=== PATIENT | female | born 1980 | race Hispanic/Latino ===

== ENCOUNTER 2019-03-11 17:41 | Emergency (ER) | payer SELFPAY ==
--- NOTE | 2019-03-11 18:41 | RAD REPORT ---
EXAM DESCRIPTION: Brenden Single View03/11/2019 6:23 pm CLINICAL HISTORY: Chest pain COMPARISON: none FINDINGS: The lungs appear grossly clear. Heart is normal size IMPRESSION: No acute abnormalities displayed
[2019-03-11 18:48] LABS: Absolute Lymphocytes (CBC) 1.1 K/uL (0.7-4.9); Basophils % 0.5 % (0-1.3); Eosinophils % 1.8 % (0-4.4); Lymphocytes % 12.9 % (15.3-44.8); MPV 10.8 fL (7.6-11.3); Protime INR 1.14; RBC Red Blood Cell Count 5.99 M/uL (3.86-4.86)
[2019-03-11 19:04] LABS: ALT/SGPT 21 U/L (12-78); AST/SGOT 14 U/L (15-37); Albumin 3.8 g/dL (3.4-5.0); Alkaline Phosphatase 97 U/L (45-117); BUN Blood Urea Nitrogen 5 mg/dL (7-18); Bicarbonate 27 mmol/L (21-32); Bilirubin Direct 0.4 mg/dL (0-0.2); Bilirubin Total 1.9 mg/dL (0.2-1.0); Glucose Level 162 mg/dL (74-106); Magnesium 2.2 mg/dL (1.8-2.4); NT PRO-BNP 491 pg/mL (<125); Potassium 3.6 mmol/L (3.5-5.1); Protein, Total 8.2 g/dL (6.4-8.2); Sodium Level 140 mmol/L (136-145); Troponin (Emerg Dept Use Only) < 0.02 ng/mL (0.0-0.045)
[2019-03-11] MEDS ORDERED: NA CHLORIDE 0.9% 1,000 ML ONE (19:25)
--- NOTE | 2019-03-11 19:29 | RAD REPORT ---
EXAM DESCRIPTION: CT - Head Brain Wo Cont - 03/11/2019 6:28 pm CLINICAL HISTORY: Alteration of awareness/confusion COMPARISON: None TECHNIQUE: Computed axial tomography of the head was obtained. IV contrast was not requested. All CT scans are performed using dose optimization technique as appropriate and may include automated exposure control or mA/KV adjustment according to patient size. FINDINGS: An intracranial bleed is not seen . The ventricles are normal in caliber. No extra-axial fluid collection is noted. Small low-density area bilateral thalami . Mild low-density areas within periventricular, deep and subcortical white matter may represent ischem ic changes secondary to small vessel disease. Fluid within the sinuses/ mastoids is not seen. IMPRESSION: Small low-density area bilateral thalami and left basal ganglia probably representing la cunar infarcts of indeterminate age. If clinically indicated further evaluation with MRI could be obt ained
[2019-03-11] MEDS ORDERED: ASPIRIN 81 MG CHEWABLE TABLET ONE (19:59)
[2019-03-11] MEDS ORDERED: METOPROLOL TAR 25 MG TAB ONE (19:59)
[2019-03-11] MEDS ORDERED: METOPROLOL TARTRATE 5 MG/5 ML INJ IV ONE ×2 (19:59→20:31)
[2019-03-11] MEDS ORDERED: FOLIC ACID 5 MG/ML VIAL ONE (20:00)
--- NOTE | 2019-03-11 20:23 | ER ---
Nurse's Notes [facility] Name: Kaylynn Erickson Age: 38 yrs Sex: Female : 1980 Arrival Date: 03/11/2019 Time: 17:41 Bed 4 Private MD: Diagnosis: Aphasia;Cerebral infarction-age indeterminate Presentation: 03/11 17:43 Presenting complaint: Pt's states "she just doesn't want to talk and has been aa5 depressed over the last 2 weeks and just crying". Pt only answering yes or no questions at this time. Pt is A\\T\\O x 4, pt reports she is depressed. 17:43 Transition of care: patient was not received from another setting of care. Onset of aa5 symptoms was 2018. Care prior to arrival: None. 17:43 Acuity: DARREL 2 aa5 17:43 Method Of Arrival: Ambulatory aa5 18:00 Risk Assessment: Do you want to hurt yourself or someone else? Patient reports no sv desire to harm self or others. Initial Sepsis Screen: Does the patient meet any 2 criteria? HR > 90 bpm. No. Patient's initial sepsis screen is negative. Does the patient have a suspected source of infection? No. Patient's initial sepsis screen is negative. Historical: - Allergies: 17:42 No Known Allergies; aa5 - Home Meds: 17:42 None [Active]; aa5 - PMHx: 17:42 None; aa5 - PSHx: 17:42 None; aa5 - Immunization history:: Adult Immunizations unknown. - Social history:: Smoking status: Patient uses tobacco products, smokes one-half pack cigarettes per day, Patient/guardian denies using alcohol, street drugs. - Ebola Screening: : No symptoms or risks identified at this time. Screenin:05 Abuse screen: Denies threats or abuse. Denies injuries from another. Nutritional sv screening: No deficits noted. Tuberculosis screening: No symptoms or risk factors identified. Fall Risk No fall in past 12 months (0 pts). No secondary diagnosis (0 pts). IV access (20 points). Ambulatory Aid- None/Bed Rest/Nurse Assist (0 pts). Gait- Normal/Bed Rest/Wheelchair (0 pts) Mental Status- Oriented to own ability (0 pts). Total Rios Fall Scale indicates No Risk (0-24 pts). Assessment: 18:00 General: Appears uncomfortable, obese, Behavior is cooperative, anxious, crying, flat. sv General: Family reports pt's onset of symptoms was 1.5 weeks ago, stated by spouse. They stated that she had not been speaking as much and being as active as she normally is. Family reports an excess amount of stress that has happened.. Pain: Denies pain. Neuro: Level of Consciousness is awake, obeys commands, confused, Oriented to person, place, Gas Operator are equal bilaterally Moves all extremities. Full function Speech is normal, Facial symmetry appears normal, Denies numbness headache. Cardiovascular: Patient's skin is warm and dry. Pulses are 3+ in right radial artery and left radial artery Rhythm is sinus rhythm. Respiratory: Airway is patent Respiratory effort is even, unlabored, Respiratory pattern is regular, symmetrical, Denies shortness of breath. Derm: Skin is normal. Musculoskeletal: Range of motion: intact in all extremities. 19:15 General: Appears in no apparent distress. Behavior is cooperative, quiet. Pain: Denies ea pain. Neuro: Level of Consciousness is awake, alert, obeys commands, Oriented to person, place, Gas Operator are equal bilaterally Moves all extremities. Cardiovascular: Patient's skin is warm and dry. Cardiovascular: Patient's skin is warm and dry. Respiratory: Airway is patent Respiratory effort is even, unlabored, Respiratory pattern is regular, symmetrical. Derm: Skin is normal. Musculoskeletal: Circulation, motion, and sensation intact. 20:00 Reassessment: Patient and/or family updated on plan of care and expected duration. Pain ea level reassessed. Pt alert and oriented x 2, answering yes or no questions. Denies pain. Respirations even and unlabored. Chest expansions even and symmetrical. 20:58 Reassessment: Report called to Antonio DIAZ at [facility]. ea 21:37 Reassessment: Patient and/or family updated on plan of care and expected duration. Pain ea level reassessed. Pt awake and alert. Respirations even and unlabored. Chest expansions even and symmetrical. No s/s of pain or discomfort noted at this time. EMS at facility for transport, report given to EMS. Pt left facility via stretcher per EMS. Pt accompanied by significant other. Vital Signs: 17:43 BP 210 / 128; Pulse 107; Resp 20 S; Temp 99.3(O); Pulse Ox 96% on R/A; aa5 18:43 BP 200 / 130; Pulse 88 MON; Resp 19; Pulse Ox 97% on R/A; sv 19:00 BP 198 / 111; Pulse 87; Resp 18; Temp 98; Pulse Ox 98% ; ea 20:30 BP 172 / 92; Pulse 79; Resp 18; Pulse Ox 99% ; ea 20:42 BP 140 / 71; Pulse 80; Resp 18; Pulse Ox 99% ; ea 21:35 BP 186 / 92; Pulse 75; Resp 18; Temp 98.6; Pulse Ox 99% ; ea 18:43 Sinus Rhythm sv NIH Stroke Scale Scores: 18:10 NIHSS Score: 2 cp ED Course: 17:41 Patient arrived in ED. as 17:43 Arm band placed on Patient placed in an exam room, on a stretcher. aa5 17:46 Aron Ray PA is PHCP. cp 17:46 Aron Mullins MD is Attending Physician. cp 17:51 Triage completed. aa5 17:54 Bianca Lopez, JOE is Primary Nurse. sv 18:05 Patient has correct armband on for positive identification. Bed in low position. Call sv light in reach. Side rails up X2. Adult w/ patient. slusher operator on. Pulse ox on. NIBP on. Door closed. Head of bed elevated. 18:05 Initial lab(s) drawn, by me, sent to lab. First set of blood cultures drawn by me. sv Inserted saline lock: 20 gauge in left antecubital area, using aseptic technique. Blood collected. Flushed left antecubital with 5 ml normal saline. 18:07 Radiology exam delayed due to EKG and Xray being done at this time. nj 18:20 X-ray(s) taken. sv 18:22 XRAY Chest (1 view) In Process Unspecified. EDMS 18:23 Basic Metabolic Panel Sent. sv 18:23 CBC with Diff Sent. sv 18:23 LFT's Sent. sv 18:23 Magnesium Sent. sv 18:23 NT PRO-BNP Sent. sv 18:23 AMMONIA Sent. sv 18:[address] via stretcher. sv 18:28 CT completed. Patient tolerated procedure well. Patient moved back from CT. nj 18:29 CT Head Brain wo Cont In Process Unspecified. EDMS 19:04 Report given to Melvi RN and Karl RN. sv 19:08 Primary Nurse role handed off by Bianca Lopez RN sv 19:30 Liang Renteria RN is Primary Nurse. rv 21:35 No provider procedures requiring assistance completed. Patient transferred, IV remains ea in place. Administered Medications: 19:03 CANCELLED (Physician Discretion): NS 0.9% 1000 ml IV at 1 bolus Per protocol; 1000 mL cp bolus 19:20 Drug: NS 0.9% 1000 ml Route: IV; Rate: 1 bolus; Site: left antecubital; rv 20:30 Follow up: Response: No adverse reaction; IV Status: Completed infusion; IV Intake: ea 1000ml 19:51 Drug: Metoprolol 25 mg Route: PO; rv 20:15 Follow up: Response: No adverse reaction ea 19:51 Drug: Aspirin Chewable Tablet 324 mg Route: PO; rv 20:35 Follow up: Response: No adverse reaction ea 19:51 Drug: Lopressor 5 mg Route: IVP; Site: left antecubital; rv 20:05 Follow up: Response: Blood pressure is unchanged ea 19:51 Drug: foLIC Acid 1 mg Route: IVPB; Site: left antecubital; rv 21:44 Follow up: Response: No adverse reaction; IV Status: Completed infusion ea 20:15 CANCELLED (Physician Discretion): Metoprolol 25 mg PO once cp 20:25 Drug: Metoprolol 5 mg Route: IVP; Site: left antecubital; ea 20:32 Drug: Metoprolol 5 mg Route: IVP; Site: left antecubital; ea 21:00 Follow up: Response: No adverse reaction; Marked relief of symptoms ea Point of Care Testing: Blood Glucose: 18:05 Blood Glucose: 149 mg/dL; sv Ranges: Intake: 20:30 IV: 1000ml; Total: 1000ml. ea Outcome: 20:22 ER care complete, transfer ordered by . cp 20:45 Transferred by ground EMS to [facility], Transfer form completed. ea 20:45 Condition: stable 20:45 Instructed on the need for transfer, Demonstrated understanding of instructions. 21:47 Patient left the ED. ea NIH Stroke Scale - NIH Stroke Score Date: 03/11/2019 Time: 18:10 Total Score = 2 1a. Level of Consciousness (LOC) - 0(Alert) 1b. Level of Consciousness (LOC) (Year \\T\\ Age) - 0(Both) 1c. LOC Commands (Open \\T\\ Closes Eyes/[employer]) - 0(Both) 2. Best Gaze (Lateral Gaze Paresis) - 0(Normal) 3. Visual Field Loss - 0(No visual loss) 4. Facial Palsy - 0(Normal) 5a. Left Arm: Motor (10-second hold) - 0(No drift) 5b. Right Arm: Motor (10-second hold) - 0(No drift) 6a. Left Leg: Motor (5-second hold - always test supine) - 0(No drift) 6b. Right Leg: Motor (5-second hold - always test supine) - 0(No drift) 7. Limb Ataxia (finger/nose \\T\\ heel/louis - test with eyes open) - 0(Absent) 8. Sensory Loss (pinprick arms/legs/face) - 0(Normal) 9. Best Language: Aphasia (description/naming/reading) - 1(Mild to moderate aphasia) 10. Dysarthria (speech clarity - read or repeat words) - 1(Mild to Moderate) 11. Extinction and Inattention (visual/tactile/auditory/spatial/personal) - 0(No abnormality) Initials: cp Signatures: Dispatcher [employer] Bianca Lerma RN RN sv Martinez, Amelia as Calderon, Audri, RN RN aa5 Aron Ray PA PA cp Jordan, Nathan nj Antunez, Elena, RN RN ea Vicente, Ronaldo, RN RN rv Corrections: (The following items were deleted from the chart) 17:51 17:40 Presenting complaint: Pt's states "she just doesn't want to talk aa5 and has been depressed over the last 2 weeks and just crying". Pt only answering yes or no questions at this time. Pt is A\\T\\O x 4, pt reports she is depressed. aa5
--- NOTE | 2019-03-11 20:23 | EDPHYS ---
Physician Documentation [facility] Name: Kaylynn Erickson Age: 38 yrs Sex: Female : 1980 Arrival Date: 03/11/2019 Time: 17:41 Bed 4 Private MD: ED Physician Aron Mullins HPI: 03/11 18:00 This 38 yrs old Female presents to ER via Ambulatory with complaints of cp Depression. 18:00 The patient presents with decreased mental status. cp 18:00 Onset: The symptoms/episode began/occurred 1.5 week(s) ago. Possible causes: unknown. cp Associated signs and symptoms: Pertinent negatives: abdominal pain, agitation, chest pain, headache. Patient's baseline: Neuro: alert and fully oriented, Motor: no deficits, Ambulation: walks without assistance, Speech: normal. Historical: - Allergies: 17:42 No Known Allergies; aa5 - Home Meds: 17:42 None [Active]; aa5 - PMHx: 17:42 None; aa5 - PSHx: 17:42 None; aa5 - Immunization history:: Adult Immunizations unknown. - Social history:: Smoking status: Patient uses tobacco products, smokes one-half pack cigarettes per day, Patient/guardian denies using alcohol, street drugs. - Ebola Screening: : No symptoms or risks identified at this time. ROS: 18:04 Constitutional: Negative for body aches, chills, fever, poor PO intake. cp 18:04 Cardiovascular: Negative for chest pain. cp 18:04 Respiratory: Negative for cough, shortness of breath, wheezing. 18:04 Abdomen/GI: Negative for abdominal pain, nausea, vomiting, and diarrhea. 18:04 Skin: Negative for rash. 18:04 Neuro: Positive for altered mental status, Negative for headache. 18:04 All other systems are negative. Exam: 18:10 Constitutional: The patient appears in no acute distress, alert, awake, cp non-diaphoretic, non-toxic, well developed, well nourished. 18:10 Head/Face: Normocephalic, atraumatic. cp 18:10 Eyes: Periorbital structures: appear normal, Pupils: equal, round, and reactive to light and accomodation, Extraocular movements: intact throughout, Conjunctiva: normal, no exudate, no injection, Sclera: no appreciated abnormality, Lids and lashes: appear normal, bilaterally. 18:10 ENT: External ear(s): are unremarkable, Ear canal(s): are normal, clear, TM's: bulging, is not appreciated, bilaterally, erythema, that is mild, bilaterally, Nose: is normal, Mouth: Lips: moist, Oral mucosa: moist, Posterior pharynx: Airway: no evidence of obstruction, patent, Dental exam: dental caries, that is severe, diffusely. 18:10 Neck: ROM/movement: is normal, is supple, without pain, no range of motions limitations, no meningismus, no nuchal rigidity. 18:10 Chest/axilla: Inspection: normal, Palpation: is normal, no crepitus, no tenderness. 18:10 Cardiovascular: Rate: tachycardic, Rhythm: regular, Heart sounds: murmur, not appreciated, Edema: is not appreciated. 18:10 Respiratory: the patient does not display signs of respiratory distress, Respirations: normal, no use of accessory muscles, no retractions, no splinting, no tachypnea, labored breathing, is not present, Breath sounds: are clear throughout, no decreased breath sounds, no stridor, no wheezing. 18:10 Abdomen/GI: Inspection: abdomen appears normal, Palpation: abdomen is soft and non-tender, in all quadrants, rebound tenderness, is not appreciated, voluntary guarding, is not appreciated, involuntary guarding, is not appreciated. 18:10 Back: pain, is absent, ROM is normal. 18:10 Skin: no rash present. 18:10 Neuro: Orientation: to person, situation, Not oriented to time, Mentation: able to follow commands, slow to respond, Cerebellar function: Romberg testing is negative, normal finger to nose testing, heel to louis testing is normal, Motor: moves all fours, strength is normal, Sensation: no obvious gross deficits. 18:20 ECG was reviewed by the Attending Physician. cp Vital Signs: 17:43 BP 210 / 128; Pulse 107; Resp 20 S; Temp 99.3(O); Pulse Ox 96% on R/A; aa5 18:43 BP 200 / 130; Pulse 88 MON; Resp 19; Pulse Ox 97% on R/A; sv 19:00 BP 198 / 111; Pulse 87; Resp 18; Temp 98; Pulse Ox 98% ; ea 20:30 BP 172 / 92; Pulse 79; Resp 18; Pulse Ox 99% ; ea 20:42 BP 140 / 71; Pulse 80; Resp 18; Pulse Ox 99% ; ea 21:35 BP 186 / 92; Pulse 75; Resp 18; Temp 98.6; Pulse Ox 99% ; ea 18:43 Sinus Rhythm sv NIH Stroke Scale Scores: 18:10 NIHSS Score: 2 cp MDM: 17:46 Patient medically screened. [email or web address] 17:53 ED course: VS noted. Patient is not a candidate for tpa as last known normal was 1 and cp 1/2 weeks ago. 20:15 Data reviewed: vital signs, nurses notes, lab test result(s), EKG, radiologic studies, cp CT scan, plain films. 20:15 Test interpretation: by ED physician or midlevel provider: ECG, plain radiologic cp studies. Response to treatment: the patient's symptoms have mildly improved after treatment. 20:25 Physician consultation: was called at 20:15, was contacted at 20:15, regarding cp regarding transfer, to [facility]. patient's condition, DR Gaston, hospitalist \T\[facility], will accept patient as transfer. 03/11 17:55 Order name: AMMONIA cp / 17:55 Order name: Basic Metabolic Panel cp 03/11 17:55 Order name: CBC with Diff cp 03/11 17:55 Order name: LFT's cp / 17:55 Order name: Magnesium cp 03/11 17:55 Order name: NT PRO-BNP cp / 17:55 Order name: PT-INR; Complete Time: 19:02 cp /04 19:26 Interpretation: Abnormal: PT 13.4. cp / 17:55 Order name: Troponin (emerg Dept Use Only); Complete Time: 19:25 cp / 17:55 Order name: Lactate; Complete Time: 19:02 cp / 17:55 Order name: Procalcitonin; Complete Time: 19:25 cp / 17:55 Order name: Blood Culture Adult (2) cp / 17:56 Order name: Ammonia; Complete Time: 19:02 EDMS 03/11 17:56 Order name: Basic Metabolic Panel; Complete Time: 19:25 EDMS 19:25 Interpretation: Normal except: GLUC 162; BUN 5; GFR 86. 03/11 17:56 Order name: CBC with Automated Diff; Complete Time: 19:02 EDNV 03/11 19:02 Interpretation: Normal except: RBC 5.99; HGB 19.6; HCT 59.0; HEMALATHA% 77.8; LYM% 12.9. 03/11 17:53 Order name: CT Head Brain wo Cont; Complete Time: 19:32 03/11 17:55 Order name: XRAY Chest (1 view); Complete Time: 19:02 03/11 19:26 Interpretation: Report review. 03/11 17:56 Order name: Liver (Hepatic) Function; Complete Time: 19:25 EDNV 03/11 19:25 Interpretation: Normal except: AST 14; BILIT 1.9; BILID 0.4; GLOB 4.4; A/G 0.9. 03/11 17:56 Order name: Magnesium; Complete Time: 19:25 EDNV 03/11 17:56 Order name: NT PRO-BNP; Complete Time: 19:25 EDNV 03/11 18:17 Order name: Glucose, Ancillary Testing; Complete Time: 18:26 EDNV 03/11 18:26 Interpretation: GLUC,ANCIL 149; Reviewed. 03/11 19:04 Order name: UDS 03/11 20:51 Order name: Urinalysis W/Microscopic EDNV 03/11 21:19 Order name: Urine Culture [facility] 03/11 17:55 Order name: EKG; Complete Time: 17:56 03/11 17:55 Order name: Cardiac monitoring; Complete Time: 18:22 03/11 17:55 Order name: EKG - Nurse/Tech; Complete Time: 18:23 03/11 17:55 Order name: IV Saline Lock; Complete Time: 18:23 03/11 17:55 Order name: Labs collected and sent; Complete Time: 18:23 03/11 17:55 Order name: O2 Per Protocol; Complete Time: 18:23 03/11 17:55 Order name: O2 Sat Monitoring; Complete Time: 18:23 03/11 17:55 Order name: Accucheck Blood Glucose; Complete Time: 18:21 03/11 19:04 Order name: Urine Dipstick-Ancillary (obtain specimen) 03/11 19:04 Order name: Urine Test (obtain specimen) cp EC:20 Rate is 89 beats/min. Rhythm is regular. LA interval is normal. QRS interval is normal. cp QT interval is normal. Interpreted by me. Reviewed by me. Administered Medications: 19:03 CANCELLED (Physician Discretion): NS 0.9% 1000 ml IV at 1 bolus Per protocol; 1000 mL cp bolus 19:20 Drug: NS 0.9% 1000 ml Route: IV; Rate: 1 bolus; Site: left antecubital; rv 20:30 Follow up: Response: No adverse reaction; IV Status: Completed infusion; IV Intake: ea 1000ml 19:51 Drug: Metoprolol 25 mg Route: PO; rv 20:15 Follow up: Response: No adverse reaction ea 19:51 Drug: Aspirin Chewable Tablet 324 mg Route: PO; rv 20:35 Follow up: Response: No adverse reaction ea 19:51 Drug: Lopressor 5 mg Route: IVP; Site: left antecubital; rv 20:05 Follow up: Response: Blood pressure is unchanged ea 19:51 Drug: foLIC Acid 1 mg Route: IVPB; Site: left antecubital; rv 21:44 Follow up: Response: No adverse reaction; IV Status: Completed infusion ea 20:15 CANCELLED (Physician Discretion): Metoprolol 25 mg PO once cp 20:25 Drug: Metoprolol 5 mg Route: IVP; Site: left antecubital; ea 20:32 Drug: Metoprolol 5 mg Route: IVP; Site: left antecubital; ea 21:00 Follow up: Response: No adverse reaction; Marked relief of symptoms ea Point of Care Testing: Blood Glucose: 18:05 Blood Glucose: 149 mg/dL; sv Ranges: Critical Glucose Levels:Adult <50 mg/dl or >400 mg/dl <40 mg/dl or >180 mg/dl Disposition: 21:00 Chart complete. Disposition: 03/11/19 20:[address] [facility]. Diagnosis are Aphasia, Cerebral infarction - age indeterminate. - Reason for transfer: Higher level of care. - Accepting physician is DR Gaston. - Condition is Fair. - Problem is new. - Symptoms have improved. NIH Stroke Scale - NIH Stroke Score Date: 03/11/2019 Time: 18:10 Total Score = 2 1a. Level of Consciousness (LOC) - 0(Alert) 1b. Level of Consciousness (LOC) (Year \T\ Age) - 0(Both) 1c. LOC Commands (Open \T\ Closes Eyes/Director Information) - 0(Both) 2. Best Gaze (Lateral Gaze Paresis) - 0(Normal) 3. Visual Field Loss - 0(No visual loss) 4. Facial Palsy - 0(Normal) 5a. Left Arm: Motor (10-second hold) - 0(No drift) 5b. Right Arm: Motor (10-second hold) - 0(No drift) 6a. Left Leg: Motor (5-second hold - always test supine) - 0(No drift) 6b. Right Leg: Motor (5-second hold - always test supine) - 0(No drift) 7. Limb Ataxia (finger/nose \T\ heel/louis - test with eyes open) - 0(Absent) 8. Sensory Loss (pinprick arms/legs/face) - 0(Normal) 9. Best Language: Aphasia (description/naming/reading) - 1(Mild to moderate aphasia) 10. Dysarthria (speech clarity - read or repeat words) - 1(Mild to Moderate) 11. Extinction and Inattention (visual/tactile/auditory/spatial/personal) - 0(No abnormality) Initials: cp Addendum: 03/17/2019 16:47 Co-signature as Attending Physician, Aron Mullins MD I agree with the [facility] assessment and plan of care. Signatures: Dispatcher [employer] RANDALLNV Aron Mullins MD MD cha Calderon, Audri, RN RN aa5 Aron Ray PA PA cp Antunez, Elena, RN RN ea Vicente, Ronaldo, RN RN rv Corrections: (The following items were deleted from the chart) 03/11 19:03 19:03 NS 0.9% 1000 ml IV at 1 bolus Per protocol; 1000 mL bolus ordered. cp cp 20:15 20:03 Metoprolol 25 mg PO once ordered. cp cp 20:51 19:05 UA MICROSCOPIC+U.LAB.BRZ ordered. [facility] EDNV 21:47 20:22 03/11/2019 20:[address] [facility]. ea Diagnosis is Aphasia; Cerebral infarction - age indeterminate. Reason for transfer: Higher level of care. Accepting physician is DR Gaston. Condition is Fair. Problem is new. Symptoms have improved. cp 03/12 16:03/11 20:45 Data reviewed: vital signs, nurses notes, lab test result(s), EKG, cp radiologic studies, CT scan, I have discussed the patient's presentation/case with the attending Emergency Department Physician; cp 03/12 16:03/11 20:45 Test interpretation: by ED physician or midlevel provider: ECG, cp plain radiologic studies, cp 03/12 16:03/11 20:45 Response to treatment: the patient's symptoms have mildly improved cp after treatment, cp
[2019-03-11 20:49] LABS: Barbiturates NEGATIVE (NEGATIVE); Benzodiazepines NEGATIVE (NEGATIVE); Cocaine NEGATIVE (NEGATIVE); METHAMPHETAM NEGATIVE (NEGATIVE); Methadone NEGATIVE (NEGATIVE); Opiates NEGATIVE (NEGATIVE); Phencyclidine NEGATIVE (NEGATIVE); THC Cannibis NEGATIVE (NEGATIVE)
[2019-03-11 21:01] LABS: Urine Appearance CLEAR; Urine Blood NEGATIVE (NEG); Urine Color ORANGE; Urine Glucose TRACE (NEG); Urine Protein TRACE (NEG); Urine Specific Gravity 1.025 (1.005-1.030)
[2019-03-11 21:10] LABS: Urine Bilirubin NEGATIVE (NEG)
[2019-03-11 21:17] LABS: Urine Bacteria <20 /HPF (<20); Urine Culture Reflex Order REFLEXED; Urine RBC NONE SEEN /HPF (NONE SEEN)
--- NOTE | 2019-03-12 08:54 | EKG ---
Test Date: 2019-03-11 Test Time: 18:14:46 Senior Linux Unix Administrator: JUWAN MEASUREMENT RESULTS: Intervals: Rate: 89 IL: 170 QRSD: 92 QT: 366 QTc: 445 [place]: P: 33 IL: 170 QRS: 14 T: 89 INTERPRETIVE STATEMENTS: Normal sinus rhythm Normal ECG No previous ECG available for comparison Electronically Signed On 03-12-19 08:52:42 CDT by Carlos Calabrese
== END 2019-03-11 21:47 | disposition short-term general hospital (02) ==
LOC: ER 17:41
DX: I63.9 Cerebral infarction, unspecified (principal); R47.01 Aphasia; R29.702 NIHSS score 2; F17.210 Nicotine dependence, cigarettes, uncomplicated
CPT/HCPCS: 36415; 70450; 71045; 80048; 80076; 80307; 81001; 82140; 82962; 83605; 83735; 83880; 84145; 84484; 85025; 85610; 87040; 87086; 87088; 93005; 96361; 96365; 96366; 96375; 99285; J7030